=== PATIENT | female | born 1970 | race Caucasian/White ===

== ENCOUNTER → 2016-09-16 | Outpatient (CLI) | payer BC ==
[~2016-09-16] MED LIST: ACEB200C PO; ASPCH81X PO; ATOR-54 PO; BUPR-79 PO; CRDCD/180 PO; INSU100I2 SQ; KETO10TA PO; LVMI SC; OXYC-57 PO; RAMI5CAP PO; SENNTAB23 PO
--- NOTE | 2016-09-16 12:04 | DIAGNOSTIC IMAGING REPORT ---
MRI THE RIGHT SHOULDER NO CONTRAST CLINICAL HISTORY: Right shoulder pain. Possible rotator cuff tear. COMPARISON STUDY: No previous studies for comparison. FINDINGS: Imaging was performed the paracoronal sagittal and axial planes. There are no areas of marrow replacement suspicious for neoplasm. There is edema within the acromioclavicular joint, likely on a arthritic basis. No abdomen was the bicipital tendon are visualized. There is no evidence of rotator cuff tear or significant tendinopathy There is no evidence of pathologic muscular atrophy. No labral tears are visualized given the limitations of a nonarthrographic study IMPRESSION: 1. No evidence of rotator cuff tear 2. Normal bicipital tendon 3. Edema within the acromioclavicular joint, likely degenerative Electronically signed by: Jesús Osman M.D. 09/16/2016 12:02 PM Dictated Date/Time: 09/16/2016 11:57 AM
== END | disposition home or self-care (01) ==
LOC: C.MRIBC 11:00
PROVIDERS: ATTEND Orthopaedic Surgery
DX: M25.511 Pain in right shoulder (principal)

== ENCOUNTER → 2016-09-16 | Outpatient (CLI) | payer BC ==
--- NOTE | 2016-09-16 15:09 | DIAGNOSTIC IMAGING REPORT ---
CHEST 2 VIEWS ROUTINE CLINICAL HISTORY: Preoperative chest COMPARISON STUDY: No previous studies for comparison. FINDINGS: The cardiac and mediastinal contours are normal. There is no evidence of focal pulmonary consolidation. There is no evidence of failure. No pleural effusions are visualized.[ IMPRESSION: No active disease in the chest. Electronically signed by: Jesús Osman M.D. 09/16/2016 3:08 PM Dictated Date/Time: 09/16/2016 3:06 PM
[2016-09-16 15:38] LABS: BASO % 0.9 %; BASO ABS # 0.07 K/uL (0-0.2); COMPLETE YES; EOS % 3.5 %; HEMATOCRIT 41.1 % (37-47); IG% 0.1 %; LYMPH % 28.1 %; LYMPH ABS # 2.23 K/uL (1.2-3.4); MEAN CELL VOLUME 92.8 fL (80-100); MEAN CORPUSCULAR HEMOGLOBIN 31.8 pg (25-34); MEAN CORPUSCULAR HGB CONC 34.3 g/dl (32-36); MONO % 9.5 %; NEUT % 57.9 %; PLATELET COUNT 277 K/uL (130-400); RED BLOOD COUNT 4.43 M/uL (4.2-5.4); WHITE BLOOD COUNT 7.93 K/uL (4.8-10.8)
[2016-09-16 16:04] LABS: BLOOD UREA NITROGEN 15 mg/dl (7-18); CALCIUM 8.9 mg/dl (8.5-10.1); CARBON DIOXIDE 29 mmol/L (21-32); CHLORIDE 106 mmol/L (98-107); CREATININE 0.82 mg/dl (0.60-1.20); GLUCOSE 114 mg/dl (70-99); POTASSIUM 3.9 mmol/L (3.5-5.1); SODIUM 139 mmol/L (136-145)
== END | disposition home or self-care (01) ==
LOC: C.CPL 14:34
PROVIDERS: ATTEND Orthopaedic Surgery
DX: M19.019 Primary osteoarthritis, unspecified shoulder (principal)

== ENCOUNTER → 2016-10-15 | Day surgery (SDC) | payer BC ==
[2016-09-30 13:08] VITALS: Ht 170.2 cm; Wt 104.5 kg
[~2016-10-15] VITALS: Ht 170.2 cm; Wt 104.5 kg
[~2016-10-15] MED LIST changes: +ATROPINE SULFATE 0.1 MG/ML 5ML SYR IV PRN; +BUPIVACAINE/EPINEPHRINE 0.25% 1:200,000 30 ML VIAL ONE; +EpHEDrine SULFATE INJ 50 MG/ML AMP IV PRN; +EpINEphrine INJ 1MG/ML AMP 1 MG/ML AMP ONE; +FENTANYL CITRATE INJ 50 MCG/1 ML 2 ML VIAL IV PRN; +FENTANYL CITRATE INJ 50 MCG/1 ML 2 ML VIAL ONE; +GLYCOPYRROLATE INJ 0.2 MG/ML VIAL ONE; +HYDROmorphone INJ 1 MG/ML SYR IV PRN; +INSULIN HUMAN REGULAR PER UNIT 5 UNITS in SYRINGE 0 ML IV STA; +LACTATED RINGER'S 1000ML 1,000 ML IV SCH; +LIDOCAINE HCL 2% 2 ML VIAL (20MG/ML) ONE; +MIDAZOLAM HCL 1 MG/ML 2ML VIAL ONE; +NEOSTIGMINE METHYLSULFATE 5 MG/5 ML SYR ONE; +NovoLIN-R INSULIN PER UNIT CHARGE ONE; +ONDANSETRON INJ 2 MG/ML 2 ML VIAL IV PRN; +ONDANSETRON INJ 2 MG/ML 2 ML VIAL ONE; +OXYCODONE/ACETAMINOPHEN 5-325 TAB PO PRN; +PROPOFOL IV EMULSION 10 MG/ML 20 ML VIAL IV ONE; +ROCURONIUM BROMIDE 10 MG/ML 5 ML VIAL ONE; +ROPIVACAINE 0.5% 5 MG/ML 30 ML VIAL ONE; +SODIUM CHLORIDE 0.9% 1000ML 1,000 ML IV SCH
--- NOTE | 2016-10-15 07:54 | History & Physical Bridge - [place] ---
H&P Re-Evaluation Bridge Note: I have examined the patient, reviewed the History & Physical and in the interval since the performance of the History & Physical I have noted the following changes of clinical significance: No changes noted
[2016-10-15] MEDS: CLINDAMYCIN PHOS 150 MG/ML 2 ML VIAL IV SCH ×2 (08:22→08:25)
--- NOTE | 2016-10-15 09:29 | Discharge Instructions-SurgCtr ---
Discharge Instructions Date of Service Oct 15, 2016. Visit Reason for Visit: Right Shoulder Acromioclavicular Jt Arthritis Discharge Discharge Diagnosis / Problem: SAME ABOVE Discharge Goals Goal(s): Decrease discomfort, Improve function Activity Recommendations Activity Limitations: as noted below Lifting Limitations: gradually increase as tolerated Exercise/Sports Limitations: gradually increase as tolerated Shower/Bathe: tomorrow Driving or Machine Use: WHEN OUT OF THE SLING AND NOT ON PAIN MEDICATION Anesthesia . Post Anesthesia Instructions: If you have had General Anesthesia or IV Sedation: * Do not drive today. * Resume driving when surgeon permits. * Do not make important decisions or sign legal documents today. * Call surgeon for: 1. Temperature elevations greater than 101 degrees F. 2. Uncontrollable pain. 3. Excessive bleeding. 4. Persistent nausea and vomiting. 5. Medication intolerance (nausea, vomiting or rash). * For nausea and vomiting use only clear liquids such as: tea, soda, bouillon until nausea subsides, then gradually increase diet as tolerated. * If you have any concerns or questions, call your surgeon's office. If physician is unavailable and it is an emergency, call 911 or go to the nearest emergency room. . Instructions / Follow-Up Instructions / Follow-Up MEDICATIONS: * Resume previous medications unless instructed otherwise by your surgeon. * Always take pain medication on a full stomach or with food to avoid upset stomach. * Do not drink alcohol or drive while taking narcotics. * Ibuprofen or Tylenol may be taken if narcotic not needed. SPECIAL CARE INSTRUCTIONS: __ None _X_ Keep extremity elevated and iced x 48 hours; apply ice 20-30 minutes 8-10 times/day. May remove at night. _X_ Sling (WEAR NEEDED FOR COMFORT) __24 hrs/day __ Remove at night __ Shoulder Immobilizer __ 24 hrs/day __ Remove at night _X_ Dressing __ Maintain until seen in office, may shower with plastic over site _X_ Remove dressings in 24-48 hours and then may shower _X_ Cover incisions with band-aids after showering __ Do not remove steri-strips Call physician if chills or temperature rises above 102 degrees or pain unrelieved by prescribed pain medications at . . Diet Recommendations Home Diet: no limitations Fluid Restriction: None Procedures Procedures Performed: Right Shoulder Arthroscopy, Distal Clavicle Resection Pending Studies Studies pending at discharge: no Work Instructions Return To Work: after follow-up Medical Emergencies . Who to Call and When: Medical Emergencies: If at any time you feel your situation is an emergency, please call 911 immediately. . Non-Emergent Contact Non-Emergency issues call your: Primary Care Provider Call Non-Emergent contact if: you have a fever, temperature is above 101.5 . . "Provider Documentation" section prepared by Adebayo Rai. .
--- NOTE | 2016-10-15 09:58 | Anesthesia Progress Nt - [facility] ---
Anesthesia Post Op Note Date & Time Oct 15, 2016 at 09:57 Vital Signs Pain Intensity: 0 Vital Signs Past 12 Hours Date Time Temp Pulse Resp B/P (MAP) Pulse Ox O2 Delivery O2 Flow Rate FiO2 10/15/16 09:50 Room Air 10/15/16 09:24 36.6 88 16 165/85 100 Diffusion Mask 5 10/15/16 08:28 0 10/15/16 08:26 123/80 10/15/16 08:23 86 10/15/16 08:23 87 19 100 10/15/16 08:22 127/89 10/15/16 08:18 78 17 100 10/15/16 08:18 79 10/15/16 08:17 155/89 10/15/16 08:13 87 10/15/16 08:13 89 24 100 10/15/16 08:12 143/77 10/15/16 08:08 88 10/15/16 08:08 88 0 99 10/15/16 08:03 81 10/15/16 08:03 82 0 100 10/15/16 07:34 36.8 74 16 149/90 (109) 99 Room Air Notes Mental Status: alert / awake / arousable, participated in evaluation Pt Amnestic to Procedure: Yes Nausea / Vomiting: adequately controlled Pain: adequately controlled Airway Patency, RR, SpO2: stable & adequate BP & HR: stable & adequate Hydration State: stable & adequate Anesthetic Complications: no major complications apparent
--- NOTE | 2016-10-15 10:02 | OPERATIVE REPORT ---
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 POSTOPERATIVE DIAGNOSES: Same. PROCEDURE: Right shoulder diagnostic arthroscopy with extensive debridement, distal clavicle resection and acromioplasty. SURGEON: Shayan Mendoza DO [employer] DIRECTOR: Jovani Rai PA-C, whose assistance was necessary for positioning the arm and helping with instrumentation. ANESTHESIA: General with a right interscalene nerve block. COMPLICATIONS: None. CONDITION: Stable to PACU. INDICATIONS: Deisy is a pleasant 46-year-old female, who presented to my office with several month history of right shoulder pain. MRI and clinical examination were diagnostic for severe AC joint arthritis and external impingement. After failing conservative treatment, she elected to undergo arthroscopy. DESCRIPTION OF PROCEDURE: On 10/15/2016, she arrived at [facility] for the above procedure. She was seen in the preoperative holding area and the operative extremity was identified and signed. She was given a preoperative antibiotic and a right interscalene nerve block. She was taken back to the operating room, laid on the table in supine position and put under general anesthesia. She was then put into the beachchair position. The right shoulder was prepped and draped in sterile fashion. Time-out was done and the patient and operative extremity was properly identified. A scope was introduced in the posterior portal. Diagnostic arthroscopy showed no cartilage damage to the humeral head or the glenoid. The biceps tendon was intact. There were no labral tears. There was a little fraying of the anterior labrum, but not much. The supraspinatus, infraspinatus, teres minor and subscapularis were all checked and intact. An anterior portal was made. A shaver was used to do a debridement of some of the intra-articular structures. The biceps tendon was pulled into the joint without any evidence of pathology. The scope was then put into the subacromial space. A lateral portal was made. A shaver was used to do a complete subacromial and subdeltoid bursectomy. An extensive debridement was done of these spaces to remove all bursitis. An ablator was used to tease the coracoacromial ligament off the undersurface of the acromion and a 5-0 kenendy was used to complete an acromioplasty of a Bigliani type III acromion. A shaver was used to remove any excess debris. The bursal side of the rotator cuff was examined extensively without evidence of tear. Attention was turned to the distal clavicle. Through an anterior portal, a shaver and ablator were used to skeletonize the distal clavicle. A 5-0 kennedy was then used to resect the distal 7 mm from the clavicle. Complete resection was checked under direct visualization. Multiple pictures were taken. Arthroscopic instruments were removed from the shoulder. Portal sites were closed with 3-0 nylon. She was then placed in a soft dressing and a regular arm sling. She was then extubated, transferred to a litter and taken to the postanesthesia care unit in stable condition. She tolerated the procedure well. I attest to the content of the Intraoperative Record and any orders documented therein. Any exception s are noted below.
[2016-10-15 10:20] VITALS: TEMP 36.2
[2016-10-15 10:41] VITALS: BP 133/83; PULSE 69; O2SAT 97
--- NOTE | 2016-10-15 11:45 | [facility] Post Operative Brief Note ---
Immediate Operative Summary Operative Date Oct 15, 2016. Pre-Operative Diagnosis Right Shoulder A/C Joint Arthritis Post-Operative Diagnosis Same Procedure(s) Performed Right Shoulder Arthroscopy, Distal Clavicle Resection Surgeon Dr. Mendoza Government Relations Manager Surgeon(s) Tay Rai PA-C Estimated Blood Loss 5 ML Findings as above Specimens None Complication(s) None Disposition Recovery Room / PACU
== END | disposition home or self-care (01) ==
LOC: X.SURG 07:02
PROVIDERS: ATTEND Orthopaedic Surgery
DX: M25.811 Other specified joint disorders, right shoulder (principal); M19.011 Primary osteoarthritis, right shoulder; R00.8 Other abnormalities of heart beat; F17.210 Nicotine dependence, cigarettes, uncomplicated; Z79.82 Long term (current) use of aspirin; Z79.899 Other long term (current) drug therapy